=== PATIENT | male | born 1995 | race Caucasian/White ===

== ENCOUNTER 2016-08-23 15:40 | Emergency (ER) | payer OTHER ==
[~2016-08-23] VITALS: Ht 167.6 cm; Wt 72.6 kg
[~2016-08-23 15:40] MED LIST: AUGMENTIN 875875 MG PO; BACTROBAN CREAM15 GM PO; CYCLOBENZAPRINE5 M3 PO; KEFLEX500 M1 PO; MOTRIN800 MG PO; Motrin,Rufen800 MG PO; NYSTATIN CREAM15 GM T; PREDNISONE10 MG PO; PREDNISONE20 M1 PO
[2016-08-23 16:03] VITALS: BP 110/60
[2016-08-23 16:31] LABS: BASO % 0.4 % (0.0-1.0); EOS # 0.1 10*3/uL (0.0-0.4); HEMATOCRIT 45.9 % (42.0-52.0); HEMOGLOBIN 15.3 g/dl (14.0-18.0); IG # 0.1 10*3/uL (0.0-0.1); LYMPH # 1.4 10*3/uL (1.3-4.4); LYMPH % 19.9 % (27.0-41.0); MEAN CELL VOLUME 91.4 fl (80.0-94.0); MEAN CORPUSCULAR HGB 30.5 pg (27.0-31.0); MEAN CORPUSCULAR HGB CONC 33.3 g/dl (33.0-37.0); MEAN PLATELET VOLUME 11.4 fl (9.6-12.3); MONO # 0.9 10*3/uL (0.1-1.0); MONO % 11.9 % (3.0-9.0); NEUT # 4.7 10*3/uL (2.3-7.9); NEUT % 66.1 % (47.0-73.0); PLATELET COUNT AUTOMATED 211 10*3/uL (130-400); RED BLOOD COUNT 5.02 10*6/uL (4.50-5.90); RED CELL DISTRI WIDTH 13.5 % (0-14.5); WHITE BLOOD COUNT 7.1 10*3/uL (4.8-10.8)
[2016-08-23 16:50] LABS: ALBUMIN 4.4 gm/dl (3.1-4.5); ALKALINE PHOSPHATASE 77 U/L (45-117); BILIRUBIN, TOTAL 0.6 mg/dl (0.2-1.0); BUN 17 mg/dl (7-24); CARBON DIOXIDE 26 mmol/L (21-32); CHLORIDE 106 mmol/L (98-107); EST GLOM FILT AFRICAN AMERICAN > 60 ml/min; GLUCOSE 85 mg/dL (65-99); POTASSIUM 4.8 mmol/L (3.5-5.1); SGOT/AST 34 IU/L (3-35); SGPT/ALT 22 U/L (12-78); SODIUM 139 mmol/L (136-145); TOTAL PROTEIN 8.4 gm/dL (6.4-8.2)
[2016-08-23] MEDS ORDERED: PREDNISONE10 MG PO (17:40)
[2016-08-23] MEDS ORDERED: CEFDINIR250 MG/5 M PO (17:40)
== END 2016-08-23 17:55 | disposition home or self-care (01) ==
LOC: ED 15:40
PROVIDERS: Registered Nurse
DX: J02.9 Acute pharyngitis, unspecified (principal)

== ENCOUNTER → 2016-10-01 | Day surgery (SDC) | payer OTHER ==
[2016-09-26 13:31] LABS: BASO % 0.4 % (0.0-1.0); EOS # 0.1 10*3/uL (0.0-0.4); EOS % 1.3 % (1.0-4.0); HEMATOCRIT 40.2 % (42.0-52.0); HEMOGLOBIN 13.7 g/dl (14.0-18.0); IG # 0.1 10*3/uL (0.0-0.1); LYMPH # 1.5 10*3/uL (1.3-4.4); MEAN CELL VOLUME 90.5 fl (80.0-94.0); MEAN CORPUSCULAR HGB 30.9 pg (27.0-31.0); MEAN CORPUSCULAR HGB CONC 34.1 g/dl (33.0-37.0); MEAN PLATELET VOLUME 11.2 fl (9.6-12.3); MONO # 0.6 10*3/uL (0.1-1.0); MONO % 10.2 % (3.0-9.0); NEUT # 3.2 10*3/uL (2.3-7.9); NEUT % 59.2 % (47.0-73.0); PLATELET COUNT AUTOMATED 231 10*3/uL (130-400); RED BLOOD COUNT 4.44 10*6/uL (4.50-5.90); WHITE BLOOD COUNT 5.5 10*3/uL (4.8-10.8)
[2016-09-26 14:25] LABS: PROTHROMBIN TIME 10.5 SECONDS (9.0-12.4)
[~2016-10-01] VITALS: Ht 167.6 cm; Wt 77.1 kg
[~2016-10-01] MED LIST changes: +CEFDINIR250 MG/5 M PO; +OXYCODONE-ACET500 ML PO
--- NOTE | ~2016-10-01 | O ---
[place], [place] OPERATIVE NOTE NAME: JOSÉ MIGUEL PETER III UNIT #: [id number] ROOM: DOCTOR: KYLAH ANGELA MD BIRTHDATE: [birth year] DOS: 10/01/2016 PREOPERATIVE DIAGNOSIS: Chronic tonsillitis. POSTOPERATIVE DIAGNOSIS: Chronic tonsillitis. OPERATION PERFORMED: Bilateral tonsillectomy. SURGEON: Dr. Angela. ANESTHESIA: General endotracheal. OPERATIVE PROCEDURE: Following induction of general endotracheal anesthesia, the patient was positioned supine on the OR table and draped in the standard fashion for tonsillectomy. The mouth was exposed using McIvor retractor. Bilateral tonsillectomy was performed with electrocautery. Minor bleeding was controlled with cautery. At the end of the case, all instrument and sponge counts were correct. Gastric contents were decompressed. The patient was awakened, extubated and transported to PACU in satisfactory condition. KYLAH ANGELA MD CM:OPRECORD:OPERATIVE NOTE [id number] KYLAH ANGELA MD 10/02/16 1145 interface
[2016-10-01 12:00] VITALS: BP 127/70
[2016-10-01 14:13] VITALS: BP 131/73
[2016-10-01 14:29] VITALS: BP 134/64
[2016-10-01 14:43] VITALS: BP 139/82
[2016-10-01 15:00] VITALS: BP 133/64
[2016-10-01 15:20] VITALS: BP 127/68
== END | disposition home or self-care (01) ==
LOC: SDC 09-26 12:30
PROVIDERS: Specialist
DX: J35.01 Chronic tonsillitis (principal); F90.9 Attention-deficit hyperactivity disorder, unspecified type; Z82.49 Family history of ischemic heart disease and other diseases of the circulatory system

== ENCOUNTER 2019-01-17 15:59 | Emergency (ER) | payer OTHER ==
[~2019-01-17] VITALS: Ht 165.1 cm; Wt 78.9 kg
[2019-01-17 15:59] VITALS: BP 111/71
[2019-01-17] MEDS ORDERED: CEPHALEXIN500 M1 PO (16:44)
[2019-01-17] MEDS ORDERED: PREDNISONE20 M1 PO (16:44)
== END 2019-01-17 17:15 | disposition home or self-care (01) ==
LOC: ED 15:59
DX: L23.7 Allergic contact dermatitis due to plants, except food (principal); L03.114 Cellulitis of left upper limb

== ENCOUNTER → 2020-05-02 | Outpatient (CLI) | payer OTHER ==
[~2020-05-02] MED LIST changes: +CEPHALEXIN500 M1 PO
== END | disposition home or self-care (01) ==
LOC: COVID19 14:42
PROVIDERS: ATTEND Family Medicine
DX: U07.1 COVID-19 (principal)